=== PATIENT | male | born 1985 | race Caucasian/White ===

== ENCOUNTER 2018-12-24 13:57 | Inpatient (IN) ==
[2018-12-24] MEDS ORDERED: D5W 1,000 ML IV PRN (18:15)
[2018-12-24] MEDS ORDERED: TUBERSOL ID ONE (18:15)
[2018-12-24] MEDS ORDERED: TYLENOL PO PRN (18:15)
[2018-12-24] MEDS ORDERED: DULCOLAX PR PRN (18:15)
[2018-12-24] MEDS ORDERED: MAALOX PLUS LIQUID PO PRN (18:15)
[2018-12-24] MEDS ORDERED: SALINE LOCK IV FLUID XX ONE (18:15)
[2018-12-24] MEDS ORDERED: MOTRIN PO PRN (18:15)
[2018-12-24] MEDS ORDERED: IMODIUM PO PRN (18:15)
[2018-12-24] MEDS ORDERED: SENOKOT PO PRN (18:15)
[2018-12-24] MEDS ORDERED: ZOFRAN IV PRN (18:15)
[2018-12-24] MEDS ORDERED: BENTYL PO PRN (18:15)
[2018-12-24] MEDS ORDERED: PHENOBARBITAL IV PRN (18:15)
[2018-12-24 18:45] LABS: URINE SOURCE CLEAN CATCH
[2018-12-24] MEDS ORDERED: M.V.I.-12 10 ML, FOLIC ACID 1 MG, MAGNESIUM SULFATE 1 GM, THIAMINE 100 MG in NS 1,000 ML IV ONE (19:00)
[2018-12-24 19:04] LABS: BILIRUBIN URINE NEGATIVE (NEGATIVE); BLOOD URINE NEGATIVE (NEGATIVE); CLARITY CLEAR (CLEAR); COLOR YELLOW; GLUCOSE URINE NEGATIVE (NEGATIVE); KETONE URINE NEGATIVE (NEGATIVE); LEUKOCYTES URINE NEGATIVE (NEGATIVE); NITRITE URINE NEGATIVE (NEGATIVE); PROTEIN URINE NEGATIVE (NEGATIVE); UROBILINOGEN URINE NORMAL
[2018-12-24 19:12] LABS: HEMATOCRIT 43.6 % (42.0-52.0); HEMOGLOBIN 15.2 g/dL (14.0-18.0); MCH 32.2 PG (27-31); MCHC 34.9 g/dL (33-37); MCV 92.4 FL (81-99); MPV 9.5 FL (7.4-10.4); RBC 4.72 XMIL (4.7-6.1); RDW 14.9 % (11.5-14.5); WBC 5.75 X1000 (4.8-10.8)
[2018-12-24 19:25] LABS: UR AMPHETAMINES QUAL NONE DETECTED (NONE DETECT); UR BARBITUATES QUAL NONE DETECTED (NONE DETECT); UR BENZODIAZEPIN QUAL PRESUMPTIVE POSITIVE (NONE DETECT); UR CANNABINOIDS QUAL NONE DETECTED (NONE DETECT); UR COCAINE QUAL NONE DETECTED (NONE DETECT); UR METHADONE QUAL NONE DETECTED (NONE DETECT); UR METHAMPHETAMINE QUAL NONE DETECTED (NONE DETECT); UR OPIATES QUAL NONE DETECTED (NONE DETECT); UR OXYCODONE QUAL NONE DETECTED (NONE DETECT); UR PCP QUAL NONE DETECTED (NONE DETECT); UR PROPOXYPHENE QUAL NONE DETECTED (NONE DETECT); UR TCA QUAL NONE DETECTED (NONE DETECT)
[2018-12-24 19:29] LABS: INR 0.93; PROTIME 12.9 Seconds (11.0-16.0)
[2018-12-24 19:30] LABS: AMYLASE 51 U/L (20-200); LIPASE 38 U/L (13-60)
[2018-12-24 19:32] LABS: AGAP 16; ALBUMIN 4.5 g/dL (3.5-5.0); ALKALINE PHOSPHATASE 63 U/L (32-122); BUN 5 mg/dL (8-22); CHLORIDE 99 mmol/L (98-107); COSMO 274; CREATININE 0.7 mg/dL (0.7-1.2); ESTIMATED GFR > 60; GLUCOSE 93 mg/dL (70-104); GOT 37 U/L (10-34); GPT 27 U/L (10-44); POTASSIUM 4.1 mmol/L (3.5-5.1); SODIUM 139 mmol/L (136-145); TCO2 23 mmol/L (25-35); TOTAL PROTEIN 7.8 g/dL (6.3-8.3)
[2018-12-24] MEDS: TRILEPTAL PO SCH (20:00)
[2018-12-24] MEDS: LIBRIUM PO SCH (20:00)
[2018-12-24] MEDS: NICODERM PATCH TD PRN (20:01)
[2018-12-24] MEDS: ZOFRAN ODT PO PRN (20:05)
[2018-12-24] MEDS: SEROQUEL PO PRN (20:05)
[2018-12-25] MEDS: ATARAX PO PRN ×2 (00:30→20:05)
[2018-12-25] MEDS: ROBAXIN PO PRN ×2 (00:31→22:34)
[2018-12-25] MEDS: LIBRIUM PO SCH ×4 (01:46→20:02)
--- NOTE | 2018-12-25 02:10 | HISTORY AND PHYSICAL ---
CHIEF COMPLAINT: Tremors, nausea, vomiting. HISTORY OF PRESENT ILLNESS: Patient is a 33-year-old male who presented to [facility] secondary to nausea, vomiting, abdominal pain, tremors, myalgias. The patient notes that he has been drinking heavily. He has attempted to stop several times in the past. SOCIAL HISTORY: Patient is legally . Currently unemployed, but starting a new job soon. He lives at home in [place]. PAST MEDICAL HISTORY: Hypertension, chronic anxiety, depression. MEDICATIONS: Prozac 20, trazodone 50, Trileptal 150. ALLERGIES: No known drug allergies. REVIEW OF SYSTEMS: CINA score is 14 secondary to nausea, vomiting, diaphoresis, moderate severe anxiety, easily agitated. He is having some tremors. Denies any visual or auditory hallucinations currently. Denies fevers. Denies headaches, blurred vision, change in vision. Denies any focalized numbness, tingling or weakness. SUBSTANCE ABUSE HISTORY: The patient has been in alcohol withdrawal treatment several times in 2017, remained 34 days. Stayed sober for 2-3 months. He again returned to [facility] in 2018, remained sober for 35 days. Was in [facility] in 2018 for 5 days, did not remain sober for any time. However, interestingly he took naltrexone for 1 month and remained sober while he was on naltrexone. Started drinking at age 15, currently drinks 15 beers a day. Started smoking at age 15, currently smokes a pack a day. FAMILY HISTORY: Noncontributory. PHYSICAL EXAMINATION: VITAL SIGNS: Reviewed and stable. GENERAL: Patient is awake, alert, oriented. Currently in no respiratory distress. HEENT: Normocephalic, atraumatic. AGATHA. NECK: Supple. No JVD. CARDIOVASCULAR: Regular rate. No murmurs. CHEST: Clear. ABDOMEN: Soft. ASSESSMENT: 1. Nausea and vomiting. 2. Abdominal pain. 3. Myalgias. 4. Paresthesias. 5. Paroxysmal sweating. 6. Alcohol abuse, withdrawal and stabilization. PLAN: We will admit patient to the hospital, begin counseling. Place on high-dose Librium taper and we will follow. Discussed with patient use of naltrexone at home. cc: Tano Barrera MD
[2018-12-25] MEDS: PROTONIX PO SCH (06:06)
[2018-12-25] MEDS: TRILEPTAL PO SCH ×2 (09:15→20:04)
[2018-12-25] MEDS: VITAMIN B-1 PO SCH (09:15)
[2018-12-25] MEDS: THERA M PLUS PO SCH (09:16)
[2018-12-25] MEDS: PROZAC PO SCH (09:16)
[2018-12-25] MEDS: FOLIC ACID PO SCH (09:16)
[2018-12-25] MEDS: SEROQUEL PO PRN (20:02)
[2018-12-25] MEDS: ZOFRAN ODT PO PRN (20:02)
[2018-12-25] MEDS: NICODERM PATCH TD PRN (20:04)
[2018-12-25] MEDS: DESYREL PO PRN (22:34)
--- NOTE | 2018-12-26 03:37 | PROGRESS NOTE ---
DATE: 12/25/2018 SUBJECTIVE: Patient overall states he is feeling a little bit better. He is tolerating Librium taper although he is still having some tremors and myalgias occasionally. Did not sleep last night. States that he gets jittery and anxious shortly before his next Librium dose. PHYSICAL EXAMINATION: Vital Signs: Temperature 98.1 degrees, pulse 115, respiratory 20, BP 113/83. General: Patient is currently in no respiratory distress. HEENT: Normocephalic. Neck: Supple. Cardiovascular: Regular rate. Chest: Clear. Abdomen: Soft. Extremities: Moves all extremities. Neurologic: No focal changes. Patient is noted to have a very mild tremor. ASSESSMENT: 1. Nausea and vomiting. 2. Abdominal pain. 3. Myalgias. 4. Tremors. 5. Paresthesias. 6. Alcohol abuse, withdrawal and stabilization. PLAN: Continue patient in the hospital. Continue to wean Librium as tolerated. Further orders as needed. cc: Tano Barrera MD
[2018-12-26] MEDS: LIBRIUM PO SCH ×3 (05:06→20:16)
[2018-12-26] MEDS: PROTONIX PO SCH (06:30)
[2018-12-26] MEDS: PROZAC PO SCH (09:00)
[2018-12-26] MEDS: THERA M PLUS PO SCH (09:01)
[2018-12-26] MEDS: VITAMIN B-1 PO SCH (09:01)
[2018-12-26] MEDS: TRILEPTAL PO SCH ×2 (09:01→20:16)
[2018-12-26] MEDS: FOLIC ACID PO SCH (09:01)
[2018-12-26] MEDS: ATARAX PO PRN (17:07)
[2018-12-26] MEDS: ROBAXIN PO PRN (20:18)
[2018-12-26] MEDS: SEROQUEL PO PRN (20:20)
[2018-12-26] MEDS: DESYREL PO PRN (21:31)
--- NOTE | 2018-12-27 00:46 | PROGRESS NOTE ---
DATE: 12/26/2018 SUBJECTIVE: Patient notes overall he is improving. Notes that midday yesterday his sweating broke and he has done much better. His tremors appear to have resolved. Muscle aches have improved. Denies any nausea, vomiting. PHYSICAL EXAMINATION: Vital Signs: Temperature 97.7 degrees, pulse 93, respiratory 20, BP 142/97. General: Patient is awake, alert. He is in no current respiratory distress. Very pleasant to talk with. HEENT: Normocephalic. Neck: Supple. Cardiovascular: Regular rate. Chest: Clear. Abdomen: Soft. Extremities: Moves all extremities. Neurologic: No focal changes. Skin: Warm and dry. No rashes. ASSESSMENT: 1. Nausea and vomiting. 2. Abdominal pain. 3. Tremors. 4. Paroxysmal sweating. 5. Alcohol abuse withdrawal. PLAN: We will continue patient in the hospital. Continue Librium taper. Continue counseling. Tomorrow we will start back on naltrexone. Discussed with patient he needs to stay on this for least 6 months. cc: Tano Barrera MD
[2018-12-27] MEDS: LIBRIUM PO SCH ×2 (01:08→09:22)
[2018-12-27] MEDS: PROTONIX PO SCH (06:13)
[2018-12-27] MEDS: TRILEPTAL PO SCH (09:22)
[2018-12-27] MEDS: PROZAC PO SCH (09:22)
[2018-12-27] MEDS: FOLIC ACID PO SCH (09:22)
[2018-12-27] MEDS: THERA M PLUS PO SCH (09:22)
[2018-12-27] MEDS: VITAMIN B-1 PO SCH (09:22)
[2018-12-27] MEDS ORDERED: REVIA PO SCH (10:00)
[2018-12-27 11:47] VITALS: BP 130/86
[2018-12-27] MEDS ORDERED: LIBRIUM PO SCH (13:00)
--- NOTE | 2018-12-27 20:36 | DISCHARGE SUMMARY ---
ADMISSION DATE: 12/24/2018 DISCHARGE DATE: 12/27/2018 DISCHARGE DIAGNOSIS: 1. Nausea, vomiting. 2. Abdominal pain. 3. Tremors . 4. Myalgias. 5. Paresthesias. 6. Alcohol abuse withdrawal and stabilization. CONSULTATIONS: None. PROCEDURE: None. BRIEF HOSPITAL COURSE: Patient is a 33-year-old male who presented to the hospital secondary to nausea, vomiting, abdominal pain, tremors, was noted to be in acute alcohol withdrawal, we admitted the hospital, treated in the usual fashion, placed him on high-dose Librium taper continue counseling each day. On discharge patient is awake, alert, he is in no distress. DISPOSITION: Patient will be discharged home with medication assisted therapy, naltrexone. The patient was on naltrexone in past and did well but his prescription ran out did not have a physician. Therefore I wrote 5 refills plus a month's supply this time. Discussed patient he still needs outpatient life counseling as well as drug counseling, he needs to avoid persons, places, situations which he has been using and abusing in the past. cc: Tano Barrera MD
== END 2018-12-27 12:49 | disposition home or self-care (01) | DRG 897 ==
LOC: P.MEDSURG 15:52
PROVIDERS: ADMIT Family Medicine; ATTEND Family Medicine
CPT/HCPCS: 80053; 80104; 80301; 80305; 80307; 80320; 82055; 82150; 83690; 85027; 85610; 86580; A9270; G0431; G0434; G0477; G0480; G6040; J3411; J3475; J7030